=== PATIENT | female | born 1980 | race Caucasian/White ===

== ENCOUNTER 2016-09-15 05:16 | Emergency (ER) | payer MEDICAID ==
[~2016-09-15] VITALS: Ht 152.4 cm; Wt 70.0 kg
[2016-09-15] MEDS ORDERED: SOD CHLORIDE 0.9% 1,000 ML IV STA (05:20)
[2016-09-15 05:24] VITALS: Ht 152.4 cm; Wt 70.0 kg
[2016-09-15] MEDS ORDERED: IBUPROFEN 200 MG TAB PO ONE (06:30)
[2016-09-15 07:30] LABS: ADD SCAN DIFF NO
[2016-09-15 07:34] LABS: BASOPHILS % 0.3 % (0.0-2.0); EOSINOPHILS # 0.3 10^3/ul (0.0-0.5); EOSINOPHILS % 2.4 % (0.0-7.0); HEMATOCRIT 36.3 % (37.0-47.0); HEMOGLOBIN 12.4 g/dl (12.0-16.0); LYMPHOCYTES # 1.5 10^3/ul (0.8-2.9); MEAN CORPUSCULAR HEMOGLOBIN 31.6 pg (29.0-33.0); MEAN CORPUSCULAR HGB CONC 34.2 g/dl (32.0-37.0); MEAN CORPUSCULAR VOLUME 92.6 fl (82.0-101.0); MEAN PLATELET VOLUME 9.8 fl (7.4-10.4); MONOCYTE # 0.5 10^3/ul (0.3-0.9); MONOCYTES % 4.3 % (0.0-11.0); NEUTROPHIL # 9.2 10^3/ul (1.6-7.5); NEUTROPHILS % 79.3 % (39.0-77.0); PLATELET COUNT 364 10^3/UL (140-415); RED BLOOD COUNT 3.92 10^6/ul (4.20-5.40); RED CELL DISTRIBUTION WIDTH 14.1 % (11.5-14.5); WHITE BLOOD COUNT 11.6 10^3/ul (4.8-10.8)
[2016-09-15 07:36] LABS: ADD UMIC YES; URINE BILIRUBIN (Dip) NEGATIVE (NEGATIVE); URINE BLOOD (Dip) 3+ (NEGATIVE); URINE COLOR LT. YELLOW (YELLOW); URINE GLUCOSE (Dip) NEGATIVE (NEGATIVE); URINE KETONES (Dip) NEGATIVE (NEGATIVE); URINE LEUKOCYTE ESTERASE (Dip) 2+ (NEGATIVE); URINE NITRITE (Dip) NEGATIVE (NEGATIVE); URINE TOTAL PROTEIN (Dip) NEGATIVE (NEGATIVE); URINE UROBILINOGEN (Dip) 0.2 E.U./dL (0.1-1.0)
--- NOTE | 2016-09-15 07:40 | RADRPT ---
PROCEDURE: US OB. CLINICAL INDICATION: Size and dates TECHNIQUE: Multiple sonographic images of the pelvis were obtained. Transabdominal imaging only w as performed. The images were reviewed on a PACS workstation. COMPARISON: No prior studies are available for comparison. FINDINGS: There is a single live intrauterine gestation. Cardiac activity is present with 148 beats per minut e. position is breech. The cervix is dilated to 2.3 cm. There is fluid in the endocervical canal . Measurements were made in order to determine age. The results are as follows: BPD = 3.80 cm HC = 14.66 cm AC = 13.03 cm FL = 2.31 cm. Estimated gestational age of approximately 17 weeks 5 days. The estimated date of delivery is 02/18/2017. The EFW = 209.73 g, 49.2 %ile. The placenta is anterior. There is no evidence for an abruption or placenta previa. There are no adnexal masses. IMPRESSION: 1. Single live intrauterine gestation of approximately 17 weeks 5 days, by ultrasound criteria. Th e cervix is dilated 2 cm with fluid-filled distension of the endocervical canal. The fetus is withi n the lower uterine segment. 2. The estimated date of delivery is 02/18/2017. 3. The estimated weight is 209.73 g, 49.2 %ile. Findings were discussed with Dr. Segal on 09/15/2016 7:36:41 AM. RPTAT: HH .Ayse Serrano MD, Date Time Electronically viewed and signed by .Ayse Serrano MD, on 09/15/2016 07:39 .G/
[2016-09-15 07:47] LABS: ALBUMIN 3.6 g/dl (3.3-4.9)
[2016-09-15 07:48] LABS: POTASSIUM 3.7 mmol/L (3.5-5.1)
[2016-09-15 07:50] LABS: ALBUMIN/GLOBULIN RATIO 1.02; BILIRUBIN,INDIRECT 0.2 mg/dl (0-1.1); BILIRUBIN,TOTAL 0.2 mg/dl (0.2-1.3); CREATININE 0.45 mg/dl (0.44-1.00); TOTAL PROTEIN 7.1 g/dl (6.1-8.1)
[2016-09-15 07:51] LABS: CALCIUM 9.1 mg/dl (8.4-10.2)
--- NOTE | 2016-09-15 07:52 | ERA ---
ER Documentation Chief Complaint Date/Time DATE: 09/15/16 TIME: 05 Chief Complaint noted light tinged blood yesterday, c/o bilateral back/hip pain 20 wks preg HPI 36-year-old female presents to the emergency department complaining of flank pain and hematuria. Patient was in her normal state of health until yesterday which time she noted blood tinging of her urine and bilateral flank pain which was worse on the right side. The pain did not radiate and was described as a 6/10. Patient reported no fevers chills or dysuria. She reported no abdominal pain or vomiting or diarrhea. Patient was initially seen by triage and felt to be of possibly 20 weeks and was brought up to the OPERATING ROOM NURSE area of the hospital. At that time heart tones were normal, patient was noted to be less than 20 weeks and patient was referred down to the emergency department for evaluation. Upon arrival in our emergency department this morning, patient is complaining of mild abdominal/flank pain is noted as above. ROS All systems reviewed and are negative except as per history of present illness. Medications Home Meds No Active Prescriptions or Reported Meds Allergies Allergies: Coded Allergies: No Known Allergy (Unverified , 09/15/16) PMhx/Soc History of Surgery: No Anesthesia Reaction: No Hx Neurological Disorder: No Hx Respiratory Disorders: Yes (asthma) Hx Cardiac Disorders: No Hx Psychiatric Problems: No Hx Miscellaneous Medical Probl: No Hx Alcohol Use: No Hx Substance Use: No Hx Tobacco Use: No Smoking Status: Never smoker FmHx Noncontributory for chief complaint Physical Exam Vitals Vital Signs Date Time Temp Pulse Resp B/P Pulse Ox O2 Delivery O2 Flow Rate FiO2 09/15/16 05:24 98.0 89 20 115/58 99 Physical Exam GENERAL: The patient is well developed and appropriate for usual state of health in no apparent distress HEENT: Pupils equal, round, and reactive to light. EOMI. There is no scleral icterus. NECK: C-spine is soft and supple, there is no meningismus. There is no cervical lymphadenopathy. LUNGS: Clear to auscultation bilaterally. There are no rales, wheezes or rhonchi. HEART: Regular rate and rhythm, no murmurs, clicks, rubs or gallops. ABDOMEN: Soft, non-tender, non-distended. There are bowel sounds in all four quadrants. No rebound or guarding. No CVA tenderness EXTREMITIES: There is no peripheral cyanosis or edema. No focal swelling or erythema. NEURO: The patient moves all four extremities with 5/5 strength. Cranial nerves II - XII are intact. Normal gait. Alert and oriented SKIN: There is no apparent rash or petechiae. HEME/LYMPHATIC: There is no evidence of excessive bruising or lymphedema. PSYCHIATRIC: The patient does not appear anxious or depressed. Result Diagram: 09/15/16 0650 Results 24 hrs Laboratory Tests Test 09/15/16 06:50 Basophils # 0.010^3/ul Basophils % 0.3% Eosinophils # 0.310^3/ul Eosinophils % 2.4% Hematocrit 36.3% Hemoglobin 12.4g/dl Lymphocytes # 1.510^3/ul Lymphocytes % 13.0% Mean Corpuscular Hemoglobin 31.6pg Mean Corpuscular Hemoglobin Concent 34.2g/dl Mean Corpuscular Volume 92.6fl Mean Platelet Volume 9.8fl Monocytes # 0.510^3/ul Monocytes % 4.3% Neutrophils # 9.210^3/ul Neutrophils % 79.3% Nucleated Red Blood Cells # 0.010^3/ul Nucleated Red Blood Cells % 0.0/100WBC Platelet Count 21672^3/UL Red Blood Count 3.9210^6/ul Red Cell Distribution Width 14.1% Urine Bilirubin NEGATIVE Urine Clarity CLEAR Urine Color LT. YELLOW Urine Glucose NEGATIVE% Urine Hemoglobin 3+ Urine Ketones NEGATIVE Urine Leukocyte Esterase 2+ Urine Microscopic RBC Pending Urine Microscopic WBC Pending Urine Nitrite NEGATIVE Urine Specific [place] 1.010 Urine Total Protein NEGATIVE Urine Urobilinogen 0.2 E.U./dL Urine pH 5.5 White Blood Count 11.610^3/ul Current Medications Medications (Trade) Dose Ordered Sig/Risa Route PRN Reason Start Time Stop Time Status Last Admin Dose Admin Sodium Chloride (NS) 1,000 ml @ 1,000 mls/hr Q1H STAT IV 09/15/16 05:20 09/15/16 06:19 DC 09/15/16 06:58 Ibuprofen (Motrin) 400 mg ONCE ONCE PO 09/15/16 06:30 09/15/16 06:31 DC 09/15/16 06:57 Procedures/MDM Patient was taken to a room, seen and evaluated. Comfort measures were initiated. Diagnostic tests were ordered and reviewed. RADIOLOGY: reviewed with the radiologist CONSULTATION: OPERATING ROOM NURSE on-call was notified and recommended observation REEVALUATION: Pain was well controlled and abdomen remained benign with no obvious ongoing bleeding MEDICAL DECISION MAKIN-year-old female presents the emergency department with flank pain of uncertain etiology in the setting of an early trimester . Differential diagnosis entertained included both OPERATING ROOM NURSE issues as well as and GI issues. Patient has evidence of urinary tract infection but does not appear to be septic or toxic and has no clinical evidence of pyelonephritis. Patient has been given antibiotics for the urinary tract infection which is warranted given the status. From the standpoint of the , there is a viable intrauterine but abnormal cervical dilatation. As per my discussion with the on-call OPERATING ROOM NURSE, patient will be admitted for observation and further diagnostic considerations and therapeutic considerations for the dilatation. At this time, there is no imminent delivery or significant bleeding. Departure Diagnosis: Primary Impression: Hematuria Additional Impression: UTI (urinary tract infection) Condition: Stable KIMTONYAXIOMARA Sep 15, 2016 07:52
[2016-09-15 07:55] LABS: SQUAMOUS EPITHELIAL CELL,UR FEW; URINE RBCS >200 /HPF (0)
[2016-09-15] MEDS ORDERED: CEFTRIAXONE 1 GM/50 ML (PMX) 50 ML IVPB ONE (08:00)
[2016-09-15 08:43] VITALS: BP 126/85; PULSE 77; RESP 18; TEMP 98.1
== END 2016-09-15 09:32 | disposition home or self-care (01) ==
LOC: E/R 05:16
DX: O23.42 Unspecified infection of urinary tract in pregnancy, second trimester (principal); R31.9 Hematuria, unspecified; O99.89 Other specified diseases and conditions complicating pregnancy, childbirth and the puerperium; J45.909 Unspecified asthma, uncomplicated; Z3A.17 17 weeks gestation of pregnancy
CPT/HCPCS: 36415; 76805; 80053; 81001; 83690; 85025; 87086; 96374; J0696; J7030; Z7502; Z7610; 81003

== ENCOUNTER 2016-09-15 08:52 | Inpatient (IN) | payer MEDICAID ==
[~2016-09-15] VITALS: Ht 157.5 cm; Wt 80.0 kg
--- NOTE | 2016-09-15 09:01 | TRIAGE ---
OB Triage Datetime Report Generated by CPN: 09/15/2016 09:01 Datetime: 09/15/2016 08:49 Arrived By: Ambulatory Arrived From: Office Chief Complaint: PT CAME BACK FROM ER DUE TO UTI AND CERVICAL DIALATION OF 2.3CM BY ULTRASOUND. CALLED PT STATES HAVING SOME CRMAPING THIS AM AND THEN SHE STARTED NOTICING BLOOD IN HER URINE Movement: Present Contractions: Denies/Absent Rupture of Membranes: Denies Vaginal Bleeding: Scant Vaginal Discharge: Denies Recent Sexual Intercouse: Denies Abdominal Trauma: Not Applicable Additional Patient Complaints: NONE Time Provider Notified: 09/15/2016 09:01 Provider Notified: CORINA
[2016-09-15 09:04] VITALS: Ht 157.5 cm; Wt 80.0 kg
[2016-09-15] MEDS ORDERED: LACTATED RINGER'S 1,000 ML IV SCH (11:51)
--- NOTE | 2016-09-15 14:29 | HP ---
Date/Time of Note Date/Time of Note DATE: 09/15/16 TIME: 14:21 OB - History Hx of Present Free Text/Dictation admitted C/S feeling of opening up inside her with onset of vaginal bleeding of dark blood Chief Complaint: R flank pain and vaginal bleeding Last Menstrual Period: May 14, 2016 Estimated Due Date: Feb 18, 2017 : 6 Para: 5 Care: None Ultrasounds: No ultrasounds Abnormal Ultrasound Findings: 2 cm open cervix with fluid filled membrane Obstetrical Complications: Other (Hx of delivery at 24 weeks ) Medical Complications: Other (previous C/S X 3 ) Past Family/Social History * Past Medical, Surgical, Family and Obstetric Histories reviewed from chart. OB Admission Exam Physical Exam HEENT: WNL Heart: Rhythm Normal Lungs: Clear, Equal Abdomen: WNL Extremities: Normal Reflexes: Normal Cervical Dilatation: 1cm (membranes bulging through vagin (Hour glass membrane) ) Effacement: 50% Station: Ballotable Amniotic Fluid: Clear Heart Rate: 150's OB Assessment/Plan Other Assessment: threatened or imminent AB Other plan: Observe juvencio consultation THIERRY GEORGE MD Sep 15, 2016 14:29
--- NOTE | 2016-09-15 14:51 | CONS ---
DATE OF ADMISSION: 09/15/2016 DATE OF CONSULTATION: HISTORY OF PRESENT ILLNESS: The patient presented apparently to the hospital last night with compla int of vaginal bleeding. I received a call from Dr. William today about the management for this sarah ent. He is going to talk to the patient this afternoon. I reviewed also the patient's ultrasound w hich was done early this morning. Cervix seems to be 2 cm open with bulging bag of fluid, which mos t likely caused the hemorrhage. Currently she is 17 weeks and 5 days . RECOMMENDATION: At this point, given the gestational age of 17 weeks and 5 days and the bulging bag in the vagina based on the ultrasound report, the best choice for this patient is delivery, underst anding that the baby will not survive the delivery. If she decides for expectant management, she ne eds to understand that there is an almost 0% chance of continuing this until viability, an d in the meantime, there is a very increased risk of chorioamnionitis and maternal sepsis in the pro cess, which can lead to possible and maternal . If there is any further question, please contact me. Dictated By: ANDRÉS JOSHI/AVINASH Conf#: [id number] DID#: [id number]
--- NOTE | 2016-09-15 15:40 | DS ---
Date/Time of Note Date/Time of Note patient decided to leave against medical advice will try to follow outparient DATE: 09/15/16 TIME: 15:37 Obstetrical Discharge Record Final Diagnosis Final Diagnosis: not delivered Other Final Diagnosis threatened Condition on Discharge Physical Assessment Last Vitals: see nurses notes Voiding: Yes Bowel Movement: Yes Breast: Soft, non-tender, Filling Fundus: Other (gravid) Abdomen and Incision: soft bs + gravid Episiotomy: NA Calf Tenderness: No Patient Condition: Good THIERRY GEORGE MD Sep 15, 2016 15:40
--- NOTE | 2016-09-15 16:19 | PN ---
DATE: 09/15/2016 The patient a 36-year-old G6, P5 at 17-1/2 weeks. I was called by the emergency room as the patient had been there complaining of abdominal pain and hematuria. The patient had an ultrasound was found to be 17-1/2 weeks and per ultrasound the cervix was dilated 2 cm. The patient also had hematuria. The emergency room could not contact Dr. William as he and I had given orders for the patient to be admitted to [facility] and further management of the patient will be done by Dr. William. Dictated By: ISABEL ARRIAGA MD /NTS Conf#: [id number] DID#: [id number]
[2016-09-15] MEDS: ACETAMINOPHEN 325 MG TAB PO PRN (16:22)
[2016-09-15 19:15] LABS: INR 0.92; PROTIME 12.4 Sec (12.2-14.2)
[2016-09-15 19:16] LABS: PARTIAL THROMBOPLASTIN TIME 30.7 Sec (25.0-35.0)
[2016-09-15] MEDS ORDERED: SALINE 0.65% 45 ML NAS SPRAY NASAL PRN (19:30)
[2016-09-16] MEDS: ACETAMINOPHEN 325 MG TAB PO PRN (05:42)
[2016-09-16] MEDS ORDERED: DOCUSATE SODIUM 100 MG CAP PO SCH (09:00)
[2016-09-16] MEDS ORDERED: FERROUS SULFATE (EC) 325 MG TAB PO SCH (09:00)
[2016-09-16] MEDS ORDERED: MULTIVIT/MIN/FOLATE/IRON/PREN TAB PO SCH (09:00)
--- NOTE | 2016-09-16 11:46 | QN ---
Documentation Comment patient has decided to go home risk of infection discussed and other possible complications Yet patient desired to be D/Carlos THIERRY GEORGE MD Sep 16, 2016 11:46
--- NOTE | 2016-09-16 12:38 | QN ---
Documentation Comment Patient does NOT desire termination as recommended by juvencio consult service. Fetomaternal complications including sepsis and possible other complications were discussed with patient and yet she wants to be D/Carlos. Will follow patient wish : and follow patient in 1 day THIERRY GEORGE MD Sep 16, 2016 12:38
--- NOTE | 2016-09-16 12:42 | PD.PPDC ---
RIDING SILKS CUSTODIAN Discharge Instruction Provider Information Physician Information patient with imminent AB, leaving against medical advice Will try to convince patient to refer to [facility] or [facility] for termination: At this GA seems to be the safest procedure Diagnosis Final Diagnosis: Threatened and imminent Condition Patient Condition: Good Diet Diet: Resume Regular Diet Activity/Restrictions Activity: Bedrest May Shower Restrictions: Nothing in the Vagina Follow-up Follow-up with Physician: 1, Day/Days (in clinic, continue on PO ABs) Return to clinic for GROUP PROGRAM MANAGER Instructions: Fever greater than 101 Chills Worsening abdominal pain Excessive Vaginal Bleeding THIERRY GEORGE MD Sep 16, 2016 12:42
== END 2016-09-16 13:10 | disposition left against medical advice (07) | DRG 778 ==
LOC: OBT 08:52 → L-D 08:53 → OBT 09:18 → L-D 09:20 → OBG 09:28
PROVIDERS: ADMIT Obstetrics & Gynecology; ATTEND Obstetrics & Gynecology
DX: O20.0 Threatened abortion (principal); Z3A.17 17 weeks gestation of pregnancy
CPT/HCPCS: 85610; 85730; 86850; 86900; 86901; G0463

== ENCOUNTER 2016-09-19 10:07 | Inpatient (IN) | payer MEDICAID ==
[~2016-09-19] VITALS: Ht 157.5 cm; Wt 70.0 kg
[2016-09-19] MEDS ORDERED: ONDANSETRON 4 MG INJ IV STA (10:18)
[2016-09-19] MEDS ORDERED: SOD CHLORIDE 0.9% 1,000 ML IV STA (10:18)
[2016-09-19] MEDS ORDERED: morphine 2 MG INJ IV STA (10:18)
[2016-09-19] MEDS ORDERED: ACETAMINOPHEN/CODEINE #3 TAB PO PRN (11:30)
[2016-09-19] MEDS ORDERED: OXYTOCIN 30 UNITS/LR 500 ML IV PRN (11:30)
[2016-09-19] MEDS ORDERED: CEFAZOLIN 2 GM/50 ML (PMX) 50 ML IV ONE (11:30)
[2016-09-19] MEDS ORDERED: MISOPROSTOL 200 MCG TAB PR PRN (11:30)
[2016-09-19] MEDS ORDERED: CARBOPROST 250 MCG INJ IM PRN (11:30)
[2016-09-19] MEDS ORDERED: LIDOCAINE 1% (MPF) 30 ML INJ INJ PRN (11:30)
[2016-09-19] MEDS ORDERED: IBUPROFEN 600 MG TAB PO PRN (11:30)
[2016-09-19] MEDS ORDERED: METHYLERGONOVINE 0.2 MG INJ IM PRN (11:30)
[2016-09-19 11:37] LABS: ADD SCAN DIFF NO
[2016-09-19 11:39] LABS: BASOPHILS % 0.1 % (0.0-2.0); EOSINOPHILS # 0.1 10^3/ul (0.0-0.5); EOSINOPHILS % 0.9 % (0.0-7.0); HEMATOCRIT 30.8 % (37.0-47.0); HEMOGLOBIN 10.2 g/dl (12.0-16.0); LYMPHOCYTES # 1.3 10^3/ul (0.8-2.9); LYMPHOCYTES % 9.9 % (15.0-51.0); MEAN CORPUSCULAR HEMOGLOBIN 31.2 pg (29.0-33.0); MEAN CORPUSCULAR HGB CONC 33.1 g/dl (32.0-37.0); MEAN CORPUSCULAR VOLUME 94.2 fl (82.0-101.0); MEAN PLATELET VOLUME 9.6 fl (7.4-10.4); MONOCYTE # 0.8 10^3/ul (0.3-0.9); MONOCYTES % 6.2 % (0.0-11.0); NEUTROPHIL # 10.4 10^3/ul (1.6-7.5); NEUTROPHILS % 82.1 % (39.0-77.0); PLATELET COUNT 310 10^3/UL (140-415); RED BLOOD COUNT 3.27 10^6/ul (4.20-5.40); RED CELL DISTRIBUTION WIDTH 14.2 % (11.5-14.5); WHITE BLOOD COUNT 12.7 10^3/ul (4.8-10.8)
[2016-09-19] MEDS ORDERED: BUTORPHANOL 2 MG INJ IV PRN (12:00)
[2016-09-19 12:06] LABS: INR 0.97; PROTIME 12.9 Sec (12.2-14.2)
[2016-09-19 12:07] LABS: PARTIAL THROMBOPLASTIN TIME 30.9 Sec (25.0-35.0)
[2016-09-19 12:14] VITALS: BMI 27.3
[2016-09-19 12:15] VITALS: BP 110/58; PULSE 97; RESP 20
[2016-09-19 12:21] LABS: ALBUMIN 2.9 g/dl (3.3-4.9); ALBUMIN/GLOBULIN RATIO 0.93; BILIRUBIN,INDIRECT 0.2 mg/dl (0-1.1); BILIRUBIN,TOTAL 0.2 mg/dl (0.2-1.3); CALCIUM 8.4 mg/dl (8.4-10.2); CREATININE 0.43 mg/dl (0.44-1.00); POTASSIUM 3.5 mmol/L (3.5-5.1)
[2016-09-19 12:54] LABS: ADD UMIC YES; URINE BILIRUBIN (Dip) NEGATIVE (NEGATIVE); URINE BLOOD (Dip) 3+ (NEGATIVE); URINE COLOR LT. YELLOW (YELLOW); URINE GLUCOSE (Dip) NEGATIVE (NEGATIVE); URINE KETONES (Dip) 15 (NEGATIVE); URINE LEUKOCYTE ESTERASE (Dip) 3+ (NEGATIVE); URINE NITRITE (Dip) NEGATIVE (NEGATIVE); URINE TOTAL PROTEIN (Dip) NEGATIVE (NEGATIVE); URINE UROBILINOGEN (Dip) 0.2 E.U./dL (0.1-1.0)
[2016-09-19] MEDS: AMPICILLIN 2 GM/NS (PMX) 100 ML IV SCH ×2 (12:55→18:46)
[2016-09-19 13:15] LABS: BACTERIA,URINE FEW
[2016-09-19 13:50] LABS: BARBITURATES Negative (NEGATIVE); BENZODIAZEPINES Negative (NEGATIVE); CANNABINOIDS Negative (NEGATIVE); COCAINE Negative (NEGATIVE); OPIATES Negative (NEGATIVE)
[2016-09-19] MEDS ORDERED: SPECIAL NON-STANDARD MEDICATION IV SCH ×2 (14:00)
[2016-09-19] MEDS ORDERED: GENTAMICIN IV PER PHARMACY XX SCH (14:00)
[2016-09-19] MEDS: LACTATED RINGER'S 1,000 ML IV SCH ×2 (14:25→17:00)
[2016-09-19] MEDS: GENTAMICIN 80 MG/NS (PMX) 50 ML IVPB SCH ×2 (14:47→22:02)
--- NOTE | 2016-09-19 14:55 | ERA ---
ER Documentation Chief Complaint Date/Time DATE: 09/19/16 TIME: 14:44 Chief Complaint 17 weeks , felt "something" comming out of vagina HPI 36-year-old woman presents with pressure to the vaginal canal and is worried about spontaneous miscarriage. She states she is about 17 weeks by dates and felt fluid running down her leg associated with earlier pelvic cramping. She denies loss of consciousness, no chest pain or shortness of breath, no fevers or chills. ROS All systems reviewed and are negative except as per history of present illness. Medications Home Meds No Active Prescriptions or Reported Meds Allergies Allergies: Coded Allergies: No Known Allergy (Unverified , 09/19/16) PMhx/Soc Medical and Surgical Hx: pt denies Surgical Hx History of Surgery: No Anesthesia Reaction: No Hx Neurological Disorder: No Hx Respiratory Disorders: Yes (asthma) Hx Cardiac Disorders: No Hx Psychiatric Problems: No Hx Miscellaneous Medical Probl: No Hx Alcohol Use: No Hx Substance Use: No Hx Tobacco Use: No Smoking Status: Never smoker FmHx Family History: No diabetes Physical Exam Vitals Vital Signs Date Time Temp Pulse Resp B/P Pulse Ox O2 Delivery O2 Flow Rate FiO2 09/19/16 10:15 98.1 99 24 140/78 99 Physical Exam GENERAL: Well-developed, well-nourished, moderate discomfort HEENT: Moist mucous membranes, pink conjunctiva, no cervical spine tenderness or step-off deformities, no goiter, no jaundice or icterus, extraocular movements intact without pain. No submandibular induration, and no pharyngeal erythema NEURO: Alert and oriented 3, cranial nerves II through XII intact bilaterally, pupils equal round reactive to light, no focal deficits or facial asymmetry, sensation intact distally Strength 5/5 in upper and lower extremities bilaterally CARDIAC: Regular rate and rhythm, no murmurs rubs or gallops LUNGS: Clear bilaterally no wheezing crackles or stridor ABDOMEN: Soft nontender, no guarding, no rigidity, no rebound, no psoas sign no obturator sign. Normoactive bowel sounds SKIN: Warm and dry to touch, no abrasions, contusions, or hematomas, no lacerations, no ecchymosis, no target lesions, and without ulcers EXTREMITIES: No clubbing cyanosis or edema, calves are bilaterally symmetrical, no Homans sign, no popliteal cord sign. Distal pulses equal and bilateral PSYCH: Normal affect without agitation or irritability Result Diagram: 09/19/16 1115 09/19/16 1115 Results 24 hrs Current Medications Medications (Trade) Dose Ordered Sig/Risa Route PRN Reason Start Time Stop Time Status Last Admin Dose Admin Sodium Chloride (NS) 1,000 ml @ 2,000 mls/hr Q30M STAT IV 09/19/16 10:18 09/19/16 10:47 DC Morphine Sulfate (morphine) 2 mg ONCE STAT IV 09/19/16 10:18 09/19/16 10:19 DC Ondansetron HCl (Zofran Inj) 4 mg ONCE STAT IV 09/19/16 10:18 09/19/16 10:19 DC Procedures/MDM IV line was established patient was placed on wafer fab technician rhythm strip revealed a sinus tachycardia 110 bpm with upright P and T waves. Patient was afebrile. I administered 2 L normal saline intravenously Zofran 4 mg IV, morphine 2 mg IV. Inspection reveals a purple nonviable about 20 cm fetus without signs of life, hanging in breech position from the external vaginal canal. I called the coagulating bath operator military source operations specialist Dr. Fields spoke to him he agreed to see the patient at the bedside and once he evaluated recommended immediate operative intervention and admission. CBC and electrolytes are normal, liver function tests are normal, drug screen was negative, urine analysis is positive for infection. Antibiotics deferred to her coagulating bath operator. Departure Diagnosis: Primary Impression: premature rupture of membranes Qualified Code: O42.919 - premature rupture of membranes, unspecified duration to onset of labor Additional Impressions: Miscarriage UTI (urinary tract infection) Qualified Code: N30.00 - Acute cystitis without hematuria Ruled Out: Abdominal pain Condition: ROSELYN Graf MD Sep 19, 2016 14:55
--- NOTE | 2016-09-19 16:22 | RADRPT ---
PROCEDURE: US Pelvis. CLINICAL INDICATION: pelvic pain , retained placenta TECHNIQUE: Multiple sonographic images of the pelvis were obtained utilizing a transabdominal tech nique. The images were reviewed on a PACS workstation. COMPARISON: 09/15/2016 FINDINGS: The placenta is seen within the uterus. RPTAT: AA IMPRESSION: Placenta seen within the uterus. .Mir Love MD, MD Date Time Electronically viewed and signed by .Mir Love MD, on 09/19/2016 16:22 .S/
[2016-09-19] MEDS ORDERED: FENTAnyl 2MCG/ML-ROPIV 0.2% 100 ML ONE (16:59)
[2016-09-19] MEDS ORDERED: LACTATED RINGER'S 1,000 ML IV ONE (17:00)
[2016-09-19] MEDS ORDERED: NALOXONE (0.4 MG/ML) INJ IV PRN (17:30)
[2016-09-19] MEDS: MISOPROSTOL 200 MCG TAB VAG SCH ×2 (17:51→22:02)
--- NOTE | 2016-09-19 18:34 | HP ---
Date/Time of Note Date/Time of Note DATE: 09/19/16 TIME: 18:12 OB - History Hx of Present Free Text/Dictation 36 y/o female had spontaneous ab in hospital at 18 weeks was admitted in hospital at 17 weeks with incompetent cervix and membranes in the vagina: termination was offered and was refused at that time. Per perinatology data processing systems consultant had zero chance of saving and viability Patient had U/S in clinic 2 days prior and was noticed to have demise She had onset of contractions and bleeding after SROM and miscarried in L&D Last Menstrual Period: May 14, 2016 Estimated Due Date: Feb 18, 2017 : 6 Para: 5 Care: Good Care Ultrasounds: Abnormal US findings (incompetent cervix) Obstetrical Complications: Other (incompetent cervix hx of at 24 weeks ) Medical Complications: Other (previous C/S X 3 ) Past Family/Social History * Past Medical, Surgical, Family and Obstetric Histories reviewed from chart. Blood Type: A+ Rubella: immune RPR/VDRL: Negative GBS Status: Unknown HBsAG: Negative OB Admission Exam Vital Signs Vital Signs Vital Signs Date Time Temp Pulse Resp B/P Pulse Ox O2 Delivery O2 Flow Rate FiO2 09/19/16 12:15 99.2 97 20 110/58 94 Room Air Physical Exam HEENT: WNL Heart: Rhythm Normal Lungs: Clear, Equal Abdomen: WNL Extremities: Normal Reflexes: Normal Cervical Dilatation: other (S/P spontaneous AB , cervix appeared closed, placenta and cord were not palpated ) Last 72 hours Lab Results CBC & BMP 09/19/16 11:15 Liver Function Test 09/19/16 11:15 Alanine Aminotransferase (ALT/SGPT) 25 Albumin 2.9 L Alkaline Phosphatase 92 Aspartate Amino Transf (AST/SGOT) 18 Direct Bilirubin 0.00 Total Protein 6.0 L OB Assessment/Plan Other Assessment: S/P SAB retained placenta Other plan: try to be as minimally invasive use Cytotec if unsuccessful will do D&C THIERRY GEORGE MD Sep 19, 2016 18:22
[2016-09-19] MEDS ORDERED: ACETAMINOPHEN 325 MG TAB PO ONE (20:30)
[2016-09-19] MEDS ORDERED: ZOLPIDEM 5 MG TAB PO ONE (21:00)
[2016-09-19] MEDS: metroNIDAZOLE 500 MG/NS (PMX) 100 ML IVPB SCH (22:39)
[2016-09-20] MEDS: AMPICILLIN 2 GM/NS (PMX) 100 ML IV SCH ×2 (00:27→05:35)
[2016-09-20] MEDS: FENTAnyl 2MCG/ML-ROPIV 0.2% 100 ML BAG EPI SCH ×2 (00:34→08:15)
[2016-09-20] MEDS ORDERED: DIPHENHYDRAMINE 50 MG INJ ONE (02:22)
[2016-09-20] MEDS: MISOPROSTOL 200 MCG TAB VAG SCH (02:30)
[2016-09-20] MEDS ORDERED: DIPHENHYDRAMINE 50 MG INJ IV ONE (02:30)
[2016-09-20] MEDS: LACTATED RINGER'S 1,000 ML IV SCH (04:21)
[2016-09-20] MEDS: GENTAMICIN 80 MG/NS (PMX) 50 ML IVPB SCH (06:34)
[2016-09-20] MEDS ORDERED: OXYTOCIN 30 UNITS/LR 500 ML BAG IV ONE (07:00)
[2016-09-20] MEDS ORDERED: MISOPROSTOL 200 MCG TAB PO PRN (07:30)
[2016-09-20] MEDS: metroNIDAZOLE 500 MG/NS (PMX) 100 ML IVPB SCH ×3 (08:58→21:03)
[2016-09-20 09:17] LABS: ADD SCAN DIFF NO
[2016-09-20 09:26] LABS: BASOPHILS % 0.2 % (0.0-2.0); EOSINOPHILS # 0.1 10^3/ul (0.0-0.5); HEMATOCRIT 28.6 % (37.0-47.0); HEMOGLOBIN 9.6 g/dl (12.0-16.0); LYMPHOCYTES # 1.2 10^3/ul (0.8-2.9); MEAN CORPUSCULAR HEMOGLOBIN 31.9 pg (29.0-33.0); MEAN CORPUSCULAR HGB CONC 33.6 g/dl (32.0-37.0); MEAN PLATELET VOLUME 9.5 fl (7.4-10.4); MONOCYTE # 0.7 10^3/ul (0.3-0.9); MONOCYTES % 5.3 % (0.0-11.0); NEUTROPHIL # 11.4 10^3/ul (1.6-7.5); NEUTROPHILS % 83.6 % (39.0-77.0); PLATELET COUNT 316 10^3/UL (140-415); RED BLOOD COUNT 3.01 10^6/ul (4.20-5.40); RED CELL DISTRIBUTION WIDTH 14.3 % (11.5-14.5); WHITE BLOOD COUNT 13.7 10^3/ul (4.8-10.8)
[2016-09-20] MEDS ORDERED: FENTAnyl 50 MCG/ML VIAL ONE (11:40)
[2016-09-20] MEDS ORDERED: MIDAZOLAM 1 MG/ML 2 ML INJ ONE (11:40)
[2016-09-20] MEDS ORDERED: PHENYLephrine (100 MCG/ML) 5ML SYG ONE ×3 (11:46→12:06)
[2016-09-20] MEDS ORDERED: morphine 10 MG INJ ONE (11:50)
[2016-09-20] MEDS ORDERED: PROPOFOL 20 ML ONE (12:43)
[2016-09-20] MEDS ORDERED: LIDOCAINE 2% (SDV) 5 ML INJ ONE (12:43)
[2016-09-20] MEDS: OXYTOCIN 30 UNITS/LR 500 ML IV SCH ×2 (13:51→13:53)
--- NOTE | 2016-09-20 14:58 | RADRPT ---
PROCEDURE: US OB CLINICAL INDICATION: Retained placenta. Follow-up examination. TECHNIQUE: Sonographic evaluation of the pelvis was performed utilizing transabdominal technique. Curved array transabdominal transducer technique was utilized. Images were reviewed on the [employer] PACS workstation. COMPARISON: Exam dated 09/19/2016. FINDINGS: The uterus measures 15.79 cm x 9.02 cm in dimension. There is echogenic material within the endom etrial canal. Previously demonstrated placenta is no longer identified. IMPRESSION: 1. Echogenic material within the endometrial canal with previously demonstrated placenta no longer identified. Short interval follow-up is recommended. RPTAT: UU .eDmetrius Mcdonald MD, Date Time Electronically viewed and signed by .Demetrius Mcdonald MD, on 09/20/2016 14:58 .P/
[2016-09-20 16:23] LABS: AADO2 Arterial 44.1 mmHg (7.0-24.0); Allen Test ACCEPTAB; Arterial Base Excess -1.3 mmol/L (-3.0-3); Arterial COHb 0.3 % (0.0-3.0); Arterial Fraction of Oxyhgb 91.5 % (93.0-99.0); Arterial HCO3 22.5 mmol/L (22.0-26.0); Arterial MetHb 0.4 % (0.0-1.5); Arterial Total Hemglobin 12.3 g/dl (12.0-18.0); MODE ROOM AIR
[2016-09-20] MEDS ORDERED: FUROSEMIDE 20 MG INJ IV ONE ×4 (16:30→17:00)
[2016-09-20] MEDS ORDERED: LACTATED RINGER'S 1,000 ML IV* SCH (16:40)
[2016-09-20] MEDS ORDERED: GENTAMICIN 80 MG/NS (PMX) 50 ML IVPB SCH (17:00)
[2016-09-20] MEDS ORDERED: LEVALBUTEROL (NEB) 0.63 MG/3 ML AMP HHN PRN (17:00)
[2016-09-20] MEDS ORDERED: WITCH HAZEL/GLYCERIN PAD PR PRN (17:00)
[2016-09-20] MEDS ORDERED: OXYTOCIN 30 UNITS/LR 500 ML IV PRN (17:00)
[2016-09-20] MEDS ORDERED: ZOLPIDEM 5 MG TAB PO PRN (17:00)
[2016-09-20] MEDS ORDERED: CARBOPROST 250 MCG INJ IM PRN (17:00)
[2016-09-20] MEDS ORDERED: ACETAMINOPHEN/CODEINE #3 TAB PO PRN ×2 (17:00)
[2016-09-20] MEDS ORDERED: MISOPROSTOL 200 MCG TAB PR PRN (17:00)
[2016-09-20] MEDS ORDERED: BENZOCAINE 20% 56 ML SPRAY TOP PRN (17:00)
[2016-09-20] MEDS ORDERED: LANOLIN 7 GM TUBE TOP PRN (17:00)
[2016-09-20] MEDS ORDERED: METHYLERGONOVINE 0.2 MG INJ IM PRN (17:00)
[2016-09-20] MEDS ORDERED: DIBUCAINE 1% 30 GM OINT PR PRN (17:00)
[2016-09-20 17:28] VITALS: PULSE 121
--- NOTE | 2016-09-20 17:58 | CONS ---
DATE OF ADMISSION: 09/19/2016 DATE OF CONSULTATION: 09/20/2016 TYPE OF CONSULTATION: Medical REQUESTING PHYSICIAN: Nikko Wilson MD, [facility] ADMINISTRATION MANAGER: Syed Baptiste MD, internal medicine REASON FOR CONSULTATION: Medical management. HISTORY OF PRESENT ILLNESS: This is a 36-year-old female who is a G6, P5, who had a spontaneous at 18 weeks. The patient was admitted in the hospital at 17 weeks with incompetent cervix and membranes in the vagina. At that time, termination of was advised. However, the patient wanted to continue with expectant management, although the blood bank business manager at that time revealed zero chance of saving and viability of the fetus. The patient's ultrasound also showed demise. The patient came back to the emergency room on 09/19/2016 because of pressure to the vaginal canal. The patient was admitted to the [facility] department. The patient underwent a pelvic ultrasound that showed retained placenta within the uterus. The patient consequently underwent a D and C on 09/20/2016. The patient also had some associated bleeding. Therefore, the patient received 2 units of PRBC on 2016. After the D and C and after blood transfusion, it appeared the patient started experiencing dyspnea and chest tightness as well as diaphoresis. Hence , the medical team was called for evaluation. The patient denied any chest pain. The patient was complaining of palpitations and chest tightness. The patient was complaining of dyspnea. The patient has a known history of asthma. However, the patient's last asthma attack was approximately 2 years ago. The patient verbalized that the feeling does not appear like an asthma attack. The patient was noticed to have sinus tachycardia on the monitor. The patient was afebrile. The patient underwent a chest x-ray, stat and the results are pending at this time. PAST MEDICAL HISTORY: Asthma. PAST SURGICAL HISTORY: x3. HOME MEDICATIONS: A list of the patient's home medications is not available at this time. ALLERGIES: NO KNOWN DRUG ALLERGIES. SOCIAL HISTORY: The patient lives at home with her family. REVIEW OF SYSTEMS: A 12-point review of systems were made and the review of systems are negative other than what is mentioned in the history of present illness. PHYSICAL EXAMINATION: VITAL SIGNS: Temperature 99.2, pulse rate 94, respiratory rate 20, blood pressure 110/58, oxygen saturation 94% on room air. GENERAL: This is a slightly overweight female lying in bed, in mild respiratory distress. HEENT: Head normocephalic and atraumatic. Eyes: Anicteric sclerae. Conjunctivae clear. ENT: Nasal septum is midline. Oral mucosa is dry. NECK: Supple. JVD noticed at 45 degrees. RESPIRATORY: Bilaterally diminished breath sounds. Use of accessory muscles of respiration. Bilateral fine rales heard at the bases posteriorly. CARDIAC: Regular rate and rhythm. Sinus tachycardia. No obvious murmurs heard. ABDOMEN: Soft, nontender and nondistended. Bowel sounds hypoactive in all 4 quadrants. GENITOURINARY: Deferred. EXTREMITIES: No cyanosis, no clubbing, no edema. Peripheral pulses are palpable. NEUROLOGIC: The patient is awake, alert and oriented. Cranial nerves are grossly intact. LABORATORY AND DIAGNOSTIC DATA: ABG: pH of 7.429, pCO2 of 34.7, pO2 of 64.1, bicarbonate 20.5, oxygen saturation 92.1, base excess -1.3. Latest CBC: WBC 13.7, hemoglobin 9.6, hematocrit 28.6, platelet count 316. Chest x-ray results pending. IMPRESSION: This is a 36-year-old female who was admitted to the hospital because of a spontaneous who had retained products of conception and had a D and C done on 09/20/2016. The patient had acute respiratory distress following the procedure hence, the hospitalist team was consulted. ASSESSMENT AND PLAN: 1. Acute respiratory failure. Hypoxic. Most probably secondary to fluid overload. The patient has no evidence of any asthma exacerbation at this time. The patient's ABG showed hypoxia with no CO2 retention. The patient will be started on inhaled bronchodilators. However, Xopenex will be used because of the patient's underlying sinus tachycardia. The patient will be diuresed adequately while closely monitoring the patient's blood pressure. A 12-lead EKG will be obtained to evaluate the baseline cardiac rhythm. Serial troponins will be obtained to evaluate for any underlying acute coronary syndrome. 2. Status post spontaneous with retained products of conception. Status post D and C. Antibiotic management will be as per [facility]. 3. Normocytic normochromic anemia. Most probably anemia of acute blood loss. The patient was transfused with 2 units of PRBCs today. The patient's hemoglobin and hematocrit will be monitored closely. 4. Asthma. No evidence of any acute asthma exacerbation. The patient will be maintained on inhaled bronchodilators. The patient does not require any steroids at this time. Additional diagnostic and therapeutic orders will be added as clinically indicated. The case and management of this patient was fully discussed with Dr. Baptiste. Thank you, Dr. Wilson, for allowing us to participate in this patient 's care. We will continue to follow the patient with you. If you have any questions regarding the care of this patient, please do not hesitate to call the hospitalist at [phone] on the days from 8:00 a.m. to 7:00 p.m. and [phone] from 7:00 p.m. to 8:00 a.m. in the morning. Approximately 40 minutes was spent on the medical consult on this patient. NAVA BAPTISTE MD, AM/AVINASH Conf#: [id number] DID#: [id number] MTDD
[2016-09-20] MEDS ORDERED: ONDANSETRON 4 MG INJ IV PRN (18:00)
[2016-09-20 18:03] LABS: CREATINE KINASE 66 IU/L (23-200)
[2016-09-20 18:12] LABS: CK-MB 1.48 ng/ml (0.0-2.4)
[2016-09-20] MEDS: IBUPROFEN 600 MG TAB PO SCH (18:14)
[2016-09-20 18:19] LABS: TROPONIN-I < 0.012 ng/ml (0.00-0.12)
[2016-09-20] MEDS: LEVALBUTEROL (NEB) 0.63 MG/3 ML AMP HHN SCH (19:35)
[2016-09-20 20:00] VITALS: BP 132/63; PULSE 67; RESP 20; Ht 157.5 cm; Wt 70.0 kg
[2016-09-20] MEDS: AMPICILLIN 2 GM/NS (PMX) 100 ML IVPB SCH (20:11)
[2016-09-20 20:22] VITALS: PULSE 95
--- NOTE | 2016-09-20 20:40 | RADRPT ---
PROCEDURE: XR Chest. CLINICAL INDICATION: Chest pain. Cough. TECHNIQUE: Single frontal view. COMPARISON: None. FINDINGS: The lungs are clear. The heart size is normal. There is no pleural effusion. There is no pneumothorax. IMPRESSION: 1. Normal chest radiograph. RPTAT: QQ .Milad Parra MD, MD Date Time Electronically viewed and signed by .Milad Parra MD, on 09/20/2016 20:40 .R/
[2016-09-20] MEDS: SENNA/DOCUSATE NA (8.6MG/50MG) TAB PO SCH (21:03)
[2016-09-20] MEDS: MAGNESIUM HYDROXIDE 30ML CUP PO SCH (21:03)
[2016-09-20 23:39] LABS: CK-MB 1.66 ng/ml (0.0-2.4)
[2016-09-20 23:42] LABS: TROPONIN-I 0.015 ng/ml (0.00-0.12)
[2016-09-21] VITALS (10 sets, daily range): BP systolic 87–145; BP diastolic 52–72; PULSE 69–102; RESP 18–19
[2016-09-21] MEDS: LEVALBUTEROL (NEB) 0.63 MG/3 ML AMP HHN SCH ×3 (01:35→13:48)
[2016-09-21] MEDS: AMPICILLIN 2 GM/NS (PMX) 100 ML IVPB SCH ×4 (04:06→17:42)
[2016-09-21] MEDS: GENTAMICIN 80 MG/NS (PMX) 50 ML IVPB SCH ×3 (04:10→13:14)
[2016-09-21] MEDS: IBUPROFEN 600 MG TAB PO SCH ×4 (05:56→17:42)
[2016-09-21] MEDS: metroNIDAZOLE 500 MG/NS (PMX) 100 ML IVPB SCH ×2 (05:57→14:41)
[2016-09-21 07:17] LABS: ADD SCAN DIFF NO
[2016-09-21 07:22] LABS: BASOPHILS % 0.1 % (0.0-2.0); EOSINOPHILS # 0.2 10^3/ul (0.0-0.5); HEMATOCRIT 30.6 % (37.0-47.0); HEMOGLOBIN 10.2 g/dl (12.0-16.0); LYMPHOCYTES # 1.4 10^3/ul (0.8-2.9); LYMPHOCYTES % 17.2 % (15.0-51.0); MEAN CORPUSCULAR HEMOGLOBIN 30.8 pg (29.0-33.0); MEAN CORPUSCULAR HGB CONC 33.3 g/dl (32.0-37.0); MEAN CORPUSCULAR VOLUME 92.4 fl (82.0-101.0); MEAN PLATELET VOLUME 9.6 fl (7.4-10.4); MONOCYTE # 0.6 10^3/ul (0.3-0.9); MONOCYTES % 6.8 % (0.0-11.0); NEUTROPHIL # 5.7 10^3/ul (1.6-7.5); NEUTROPHILS % 71.3 % (39.0-77.0); PLATELET COUNT 282 10^3/UL (140-415); RED BLOOD COUNT 3.31 10^6/ul (4.20-5.40); RED CELL DISTRIBUTION WIDTH 15.8 % (11.5-14.5); WHITE BLOOD COUNT 8.1 10^3/ul (4.8-10.8)
[2016-09-21] MEDS: SENNA/DOCUSATE NA (8.6MG/50MG) TAB PO SCH (08:32)
[2016-09-21] MEDS: MAGNESIUM HYDROXIDE 30ML CUP PO SCH (08:32)
[2016-09-21] MEDS ORDERED: FUROSEMIDE 20 MG INJ IV SCH (09:00)
--- NOTE | 2016-09-21 16:32 | PN ---
DATE: 09/21/2016 TIME OF EVALUATION: 1300 SUBJECTIVE DATA: Denies any dyspnea. Denies any chest tightness. Wants to go home. OBJECTIVE DATA: VITAL SIGNS: Temperature 97.9, pulse is 74, respiratory rate 15, blood pressure 100/59, oxygen saturation 98% on room air. GENERAL: This is a slightly overweight female lying in bed in no apparent distress. HEENT: Head normocephalic and atraumatic. Eyes: Anicteric sclerae. Conjunctivae clear. ENT: Nasal septum is midline. Oral mucosa is dry. NECK: Supple. No JVD noticed. RESPIRATORY: Bilaterally clear to auscultation. No adventitious breath sounds heard. No use of accessory muscles of respiration. CARDIAC: Regular rate and rhythm. No murmurs heard. ABDOMEN: Soft, nontender and nondistended. Bowel sounds positive in all 4 quadrants. GENITOURINARY: Deferred. EXTREMITIES: No cyanosis, no clubbing, no edema. Peripheral pulses palpable. NEUROLOGIC: The patient is awake, alert and oriented. Cranial nerves are grossly intact. LABORATORY AND DIAGNOSTIC DATA: CBC: WBC 8.1, hemoglobin 10.2, hematocrit 30.6 , platelet count 282. Urine culture positive for enterococcus species. ASSESSMENT AND PLAN: 1. Acute hypoxic respiratory failure, most probably secondary to fluid overload. Resolved. Will discontinue IV Lasix. Continue inhaled bronchodilators as needed. 2. Status post spontaneous with retained products of conception. Status post D and C on 09/20/2016. Antibiotic management as per ELECTRIC [employer]ZOR ASSEMBLER. 3. Urinary tract infection. Continue antibiotics. 4. Normocytic normochromic anemia, most probably anemia of acute blood loss. Status post PRBC transfusion on 09/20/2016 with improvement of the patient's hemoglobin and hematocrit. 5. Asthma. No evidence of acute asthma exacerbation. Continue p.r.n. inhaled bronchodilators. 6. Fluid, electrolytes and nutrition. Regular diet as tolerated. 7. Deep venous thrombosis prophylaxis with bilateral sequential compression devices. 8. Gastrointestinal prophylaxis is not indicated. 9. Plan. The patient is medically stable to be discharged home from medicine standpoint of view, provided the patient gets antibiotics. There is no need for any Lasix or routine inhaled bronchodilators. Thank you for the consultation. Please call for any questions at [phone]. NAVA BAPTISTE MD JOSEFINA Conf#: [id number] DID#: [id number] MTDD
[2016-09-21] MEDS ORDERED: IBUP-1542 PO (16:46)
--- NOTE | 2016-09-21 16:46 | PD.PPDC ---
INSTALL AND REPAIR TECHNICIAN Discharge Instruction Provider Information Physician Information Patient had miscarriage in the hospital adn had removal of retained placenta on Diagnosis Final Diagnosis: 2nd trimster Condition Patient Condition: Good Diet Diet: Resume Regular Diet Activity/Restrictions Activity: Normal Activity May Shower Restrictions: Nothing in the Vagina Return to Work or School: Sep 29, 2016 Follow-up Follow-up with Physician: 3, Day/Days (in clinic ) Return to clinic for OB Instructions: Depression THIERRY GEORGE MD Sep 21, 2016 16:45
--- NOTE | 2016-09-21 16:49 | DS ---
Date/Time of Note Date/Time of Note DATE: 09/21/16 TIME: 16:47 Obstetrical Discharge Record Final Diagnosis Final Diagnosis: delivered Other Final Diagnosis second trimester Vaginal Delivery Obstetrical Delivery: Spontaneous Condition on Discharge Physical Assessment Last Vitals: see nurses notes Voiding: Yes Bowel Movement: Yes Breast: Soft, non-tender, Filling Fundus: Firm Abdomen and Incision: soft bs + Episiotomy: NA Calf Tenderness: No Patient Condition: Good (patient has no vaginal bleeding ) THIERRY GEORGE MD Sep 21, 2016 16:49
--- NOTE | 2016-09-21 16:51 | DS ---
Date/Time of Note Date/Time of Note DATE: 09/21/16 TIME: 16:49 Discharge Summary Admission/Discharge Info Admit Date/Time Sep 19, 2016 at 10:45 Discharge Date/Time 09/21/2016 Final Diagnosis S/P 2nd trimster and removal of retained placenta Patient Condition: Good Procedures post curettage Hx of Present Illness 36 y/o female had 2nd trimester ab and removal of retained placenta Hospital Course uncomplicated Home Meds Active Scripts Ibuprofen* (Ibuprofen*) 600 Mg Tablet, 600 MG PO Q6, #20 TAB 0 Refills Prov:THIERRY GEORGE MD 09/21/16 Follow-up Plan 3 days in clinic Pending Labs Laboratory Tests Test 09/20/16 17:40 09/20/16 22:59 09/21/16 06:03 Creatine Kinase 66IU/L (23-200) 56IU/L (23-200) Creatine Kinase Index 2.2 3.0 Creatinine Kinase MB (Mass) 1.48ng/ml (0.0-2.4) 1.66ng/ml (0.0-2.4) Troponin I < 0.012ng/ml (0.00-0.12) 0.015ng/ml (0.00-0.12) Basophils # 0.010^3/ul (0.0-0.1) Basophils % 0.1% (0.0-2.0) Eosinophils # 0.210^3/ul (0.0-0.5) Eosinophils % 3.0% (0.0-7.0) Hematocrit 30.6% (37.0-47.0) Hemoglobin 10.2g/dl (12.0-16.0) Lymphocytes # 1.410^3/ul (0.8-2.9) Lymphocytes % 17.2% (15.0-51.0) Mean Corpuscular Hemoglobin 30.8pg (29.0-33.0) Mean Corpuscular Hemoglobin Concent 33.3g/dl (32.0-37.0) Mean Corpuscular Volume 92.4fl (82.0-101.0) Mean Platelet Volume 9.6fl (7.4-10.4) Monocytes # 0.610^3/ul (0.3-0.9) Monocytes % 6.8% (0.0-11.0) Neutrophils # 5.710^3/ul (1.6-7.5) Neutrophils % 71.3% (39.0-77.0) Nucleated Red Blood Cells # 0.010^3/ul (0.0-0.0) Nucleated Red Blood Cells % 0.0/100WBC (0.0-0.0) Platelet Count 37406^3/UL (140-415) Red Blood Count 3.3110^6/ul (4.20-5.40) Red Cell Distribution Width 15.8% (11.5-14.5) White Blood Count 8.110^3/ul (4.8-10.8) THIERRY GEORGE MD Sep 21, 2016 16:51
--- NOTE | 2016-09-21 17:05 | OPR ---
DATE OF OPERATION: 09/20/2016 PREOPERATIVE DIAGNOSES: Retained placenta. POSTOPERATIVE DIAGNOSIS: Status post removal of placental post-abortal curettage. OPERATION PERFORMED: Removal of placenta post-abortal curettage. SURGEON: Thierry Wilson MD ANESTHESIOLOGIST: Michael Cornelius MD TYPE OF ANESTHESIA: Epidural turned General. PROCEDURE: The patient was placed on the OR table in supine position, turning to lithotomy position . Perineal and vaginal areas were prepped, draped for usual vaginal procedure. Under satisfactory anesthesia, a weighted speculum was inserted into vagina. Anterior lip of the cervix was secured wi th ring forceps. Another ring forceps was introduced inside the uterine cavity and placenta was rem rudy piece by piece until no pieces could be recovered by the sponge forceps that were entered into uterine cavity. Afterwards, a post-abortal curettage was performed to make sure no products of conc eption are left. Another ultrasound was performed during the operating room, which showed posterior placental location and calcification. Another curettage was performed to make sure no products of conception is left and uterine cavity by curettage appeared to be clean. Bleeding was under control . All the instruments at this point were removed from vaginal cavity. Patient was carefully return ed to supine position and transferred to recovery room in good condition. ESTIMATED BLOOD LOSS: Around 1 liter. Dictated By: THIERRY ORTEGA/AVINASH Conf#: [id number] DID#: [id number]
[2016-09-22] MEDS ORDERED: MEASLES,MUMPS,RUBELLA VACCINE INJ SC* ONE (09:00)
[2016-09-22] MEDS ORDERED: INFLUENZA VIRUS VACCINE 0.5 ML (DISPENSING) IM* ONE (09:00)
[2016-09-22] MEDS ORDERED: DIPHTH/TET/ACEL PERTUSS (ADULT) 0.5 ML VIAL IM* ONE (09:00)
[2016-09-22] MEDS ORDERED: VARICELLA VACCINE LIVE/PF 1,350 UNIT/0.5 ML ML SC* ONE (09:00)
--- NOTE | 2016-09-22 10:40 | RADRPT ---
Vent Rate: 99 bpm RR Interval: 0 msec HI Interval: 130 msec QRS Duration: 84 msec QT Interval: 354 msec QTC Interval: 454 msec P-R-T [place]: 50 - 33 - 8 degrees Normal sinus rhythm Normal ECG Electronically Signed By: Christopher Weir [id number]
--- NOTE | 2016-09-22 22:14 | PN ---
DATE: Incident was patient who presented herself, aborting a 17 to 18 weeks' gestation. This was performe d, an ultrasound on the patient 2 days prior, which observation of demise, which apparently co uld not be confirmed, and the patient miscarried herself in the hospital upon admission. The patien kate was seen in [facility], noticed to have incompetent cervix and hourglass membran e, and because she did not want any procedure done per perinatologist, she was discharged home. Aft er , the caring nurse called myself, which because of my distance to the hospital, I asked t he caring nurse to ask the laborist production editor to proceed with delivering the placenta. Two hours late r yet, I was called by another nurse, yet it was confirmed that it was not done. Again, because of my distance, I asked the staff to call the laborist production editor to proceed with delivering the placenta, yet it was not done. Finally, I was called by the charge nurse, informing me that the laborist dylan arently placed the admission orders and did not want to proceed with delivering the placenta because the patient appeared stable. Upon my inquiry to the laborist, I was informed that she was never as ked to proceed with delivering the placenta. This issue was explained to the nurse procurement services manager of the u nit and inasmuch as the patient remained stable throughout the whole hospitalization, finally the de cision was made to proceed with minimally invasive procedure which is placement of an intravaginal, intrarectal, or oral or sublingual Cytotec and see whether the patient spontaneously passes the plac enta. Dictated By: THIERRY ORTEGA/AVINASH Conf#: [id number] DID#: [id number]
== END 2016-09-21 18:45 | disposition home or self-care (01) | DRG 770 ==
LOC: E/R 10:07 → L-D 10:45 → MS4 09-20 17:25
PROVIDERS: ADMIT Obstetrics & Gynecology; ATTEND Obstetrics & Gynecology
PROC: 10D17ZZ Extraction of Products of Conception, Retained, Via Natural or Artificial Opening (ICD-10-PCS; principal; 2016-09-19)
DX: O03.38 Urinary tract infection following incomplete spontaneous abortion (principal); J95.821 Acute postprocedural respiratory failure; O60.12X0 Preterm labor second trimester with preterm delivery second trimester, not applicable or unspecified; N30.00 Acute cystitis without hematuria; O42.912 Preterm premature rupture of membranes, unspecified as to length of time between rupture and onset of labor, second trimester; O73.0 Retained placenta without hemorrhage; Z3A.17 17 weeks gestation of pregnancy
CPT/HCPCS: 36415; 36430; 36600; 62319; 71010; 76815; 76816; 80053; 80307; 81001; 81003; 82550; 82553; 82803; 83605; 83690; 84484; 85025; 85610; 85730; 86592; 86850; 86900; 86901; 86920; 87040; 87086; 87340; 88307; 88309; 88313; 93005; 94640; J1940; J0290; J1200; J1580; J2210; J2250; J2270; J2370; J2405; J2590; J3010; J7030; J7120; P9016